=== PATIENT | female | born 1975 | race Caucasian/White ===

== ENCOUNTER 2016-10-04 11:15 | Outpatient (RCR) | payer OTHER | END 2016-11-19 08:15 | disposition still patient (30) | LOC: WSOT 11:15 | DX: M54.2 Cervicalgia (principal); M54.12 Radiculopathy, cervical region ==

== ENCOUNTER 2021-06-30 21:20 | Emergency (ER) | payer OTHER ==
[~2021-06-30] VITALS: Ht 165.1 cm; Wt 113.6 kg
[2021-06-30 21:25] VITALS: TEMP 98.5
[2021-06-30 21:36] LABS: BASO # 0.1 (0.0-0.2); BASO % 0.7 % (0.0-2.0); EOS # 0.1 (0.0-0.7); EOS % 0.5 % (0-4.0); GRAN # 9.1 (1.4-6.5); LYMPH # 2.2 (1.2-3.4); MEAN CELL VOLUME 66 fl (80.0-100.0); MEAN CORPUSCULAR HEMOGLOBIN 20 pg (27.0-31.0); MEAN CORPUSCULAR HGB CONC 30 g/dl (33.0-37.0); MEAN PLATELET VOLUME 9.4 fl (7.4-10.4); MONO # 0.6 (0.1-0.6); PLATELET COUNT 548 K/mm3 (130-400); RED BLOOD COUNT 5.61 M/mm3 (4.10-5.30); REDCELL DISTRIBUTION WIDTH-CV 19.5 % (11.5-14.5)
[2021-06-30 21:39] LABS: HEMATOCRIT 36.9 % (37.0-47.0)
[2021-06-30 21:42] LABS: ALANINE AMINOTRANSFERASE 34 U/L (4-34); ALBUMIN 4.8 gm/dL (3.5-5.0); ALKALINE PHOSPHATASE 96 U/L (50-136); ANION GAP 18 mmol/L (7-16); AST,SGOT 31 U/L (15-37); BILIRUBIN,TOTAL 0.1 mg/dL (0.0-1.0); BLOOD UREA NITROGEN 10 mg/dL (7-17); CALCIUM 9.4 mg/dL (8.4-10.2); CARBON DIOXIDE 15 mmol/L (22-30); CHLORIDE 103 mmol/L (98-107); CREATININE, serum 0.94 (0.52-1.25); GLUCOSE 209 mg/dL (74-106); POTASSIUM 3.7 mmol/L (3.4-5.0); SODIUM 136 mmol/L (137-145); TOTAL PROTEIN 7.9 gm/dL (6.4-8.2)
[2021-06-30 21:46] LABS: ACETAMINOPHEN < 10 ug/mL (10-30); ALCOHOL(ethanol),MEDICAL < 10 mg/dL; SALICYLATE < 1.0 mg/dL
[2021-06-30 22:08] LABS: TROPONIN-I < 0.012 ng/mL (0.000-0.035)
[2021-06-30 23:08] LABS: COLLECTION METHOD CLEAN CATCH
[2021-06-30 23:15] LABS: MUCOUS Present /lpf; PH 5 (5-8); URINE APPEARANCE Cloudy; URINE BACTERIA None Seen /hpf; URINE BILIRUBIN Negative (NEGATIVE); URINE BLOOD Negative (NEGATIVE); URINE COLOR Yellow; URINE GLUCOSE 2+ (NEGATIVE); URINE KETONE 1+ (NEGATIVE); URINE LEUKOCYTE ESTERASE Trace (NEGATIVE); URINE NITRATE Negative (NEGATIVE); URINE PROTEIN(semi-quant) 1+ (NEGATIVE); URINE RBC 0-2 /hpf; URINE UROBILINOGEN Negative (NEGATIVE)
[2021-06-30 23:31] LABS: TRICYCLIC ANTIDEPRESS URINE NEGATIVE
[2021-07-01 00:14] LABS: CALCIUM 8.9 mg/dL (8.4-10.2); CREATININE, serum 0.9 (0.52-1.25); POTASSIUM 4.4 mmol/L (3.4-5.0)
[2021-07-01 00:46] VITALS: BP 126/70; PULSE 62
== END 2021-07-01 00:46 | disposition home or self-care (01) ==
LOC: COL.ER 21:20
PROVIDERS: Emergency Medicine
DX: E86.0 Dehydration (principal); F12.129 Cannabis abuse with intoxication, unspecified; E11.9 Type 2 diabetes mellitus without complications; I10 Essential (primary) hypertension
CPT/HCPCS: J2405; J7030

== ENCOUNTER 2024-02-26 17:04 | Emergency (ER) | payer OTHER ==
[~2024-02-26] VITALS: Ht 165.1 cm; Wt 104.5 kg
[2024-02-26 17:08] VITALS: TEMP 98.1
[2024-02-26] MEDS ORDERED: Ketorolac 30 MG/ML VIAL IM ONE (17:45)
[2024-02-26] MEDS ORDERED: oxyCODONE/Acetaminophen 5-325 MG TAB PO ONE (17:45)
[2024-02-26] MEDS ORDERED: NORCO 325 MG-51 TAB PO ×2 (19:32→19:33)
[2024-02-26 19:47] VITALS: BP 138/81; PULSE 88
== END 2024-02-26 19:52 | disposition home or self-care (01) ==
LOC: COL.ER 17:04
DX: S16.1XXA Strain of muscle, fascia and tendon at neck level, initial encounter (principal); S29.012A Strain of muscle and tendon of back wall of thorax, initial encounter; V49.40XA Driver injured in collision with unspecified motor vehicles in traffic accident, initial encounter; Y92.410 Unspecified street and highway as the place of occurrence of the external cause
CPT/HCPCS: J1885